=== PATIENT | male | born 1990 | race Caucasian/White ===

== ENCOUNTER 2023-01-19 05:54 | Emergency (ER) | payer OTHER ==
[2023-01-19] MEDS ORDERED: Ondansetron PF 4 MG/2 ML Vial ONE ×2 (06:23→07:28)
[2023-01-19 06:39] LABS: #Basophils 0.1 10x3/uL (0.0-0.2); #Eosinphils 0.1 10x3/uL (0.0-0.5); #Monocytes 0.5 10x3/uL (0.0-1.1); #Neutrophils 7.7 10x3/uL (1.5-8.4); %Basophils 0.5 % (0.0-2.0); %Eosinophils 0.8 % (0.0-6.0); %Lymphocytes 14.4 % (18.0-47.0); %Monocytes 5.3 % (0.0-10.0); %Neutrophils 78.7 % (40.0-75.0); Hematocrit 41.9 % (38.8-50.0); Hemoglobin 14.3 g/dL (13.5-17.5); Mean Corpuscular HGB CONC 34.1 g/dL (32.0-36.0); Mean Corpuscular Hemoglobin 29.9 pg (27.0-33.0); Mean Corpuscular Volume 87.7 fl (81.2-95.1); Mean Platelet Volume 10.3 fl (7.4-10.4); Platelet Count 246 10x3/uL (150-450); Red Blood Cell (RBC) Count 4.78 10x6/uL (4.32-5.72); White Blood Cell (WBC) Count 9.8 10x3/uL (3.5-10.5)
[2023-01-19 06:59] LABS: ALT (SGPT) 23 U/L (8-55); AST (SGOT) 16 U/L (5-34); Albumin 4.5 g/dL (3.5-5.0); Alkaline Phosphatase 62 U/L (40-110); Anion Gap 19 mmol/L (10-20); BUN (Urea Nitrogen) 19 mg/dL (8.9-20.6); Calc. Creatinine Clearance 0 mL/min (70-130); Calcium 9.6 mg/dL (7.8-10.44); Carbon Dioxide 17 mmol/L (22-29); Chloride 109 mmol/L (98-107); Estimated GFR 74; Globulin 2.6 g/dL (2.4-3.5); Glucose 131 mg/dL (70-105); Lipase 138 U/L (8-78); Potassium 3.9 mmol/L (3.5-5.1); Protein, Total 7.1 g/dL (6.0-8.3); Sodium 141 mmol/L (136-145)
[2023-01-19] MEDS ORDERED: Ketorolac Tromethamine 30 MG/ML VIAL ONE (07:28)
[2023-01-19] MEDS ORDERED: Pantoprazole 40 MG VIAL ONE (07:47)
[2023-01-19] MEDS ORDERED: Morphine 4 MG/ML VIAL ONE (08:08)
[2023-01-19] MEDS ORDERED: Iopamidol 300 61% 100 ML VIAL FS ONE (10:30)
== END 2023-01-19 09:40 | disposition home or self-care (01) ==
LOC: CSHERS 05:54
DX: K85.90 Acute pancreatitis without necrosis or infection, unspecified (principal)
CPT/HCPCS: 74177; 80053; 80178; 83690; 85025; 96361; 96374; 96375; 96376; C9113; J1885; J2270; J2405; Q9967

== ENCOUNTER 2023-06-11 08:16 | Inpatient (IN) | payer OTHER ==
[2023-06-11] MEDS ORDERED: Ondansetron PF 4 MG/2 ML Vial ONE (08:31)
[2023-06-11] MEDS ORDERED: HYDROmorphone 0.5 MG/0.5 ML SYRINGE ONE ×2 (08:37→11:01)
[2023-06-11] MEDS: Promethazine HCl 12.5 MG in Sodium Chloride 0.9% 50 ML IVPB SCH (09:15)
[2023-06-11 09:18] LABS: #Basophils 0.05 10x3/uL (0.0-0.2); #Eosinphils 0.31 10x3/uL (0.0-0.5); #Monocytes 0.56 10x3/uL (0.0-1.1); %Basophils 0.4 % (0.0-2.0); %Eosinophils 2.5 % (0.0-6.0); %Lymphocytes 21.8 % (18.0-47.0); %Monocytes 4.5 % (0.0-10.0); %Neutrophils 70.6 % (40.0-75.0); Hematocrit 44.6 % (38.8-50.0); Hemoglobin 16.2 g/dL (13.5-17.5); Mean Corpuscular HGB CONC 36.3 g/dL (32.0-36.0); Mean Corpuscular Hemoglobin 31.4 pg (27.0-33.0); Mean Corpuscular Volume 86.4 fl (81.2-95.1); Mean Platelet Volume 10.6 fl (7.4-10.4); Platelet Count 303 10x3/uL (150-450); RBC Distribution Width 11.8 % (11.5-14.5); Red Blood Cell (RBC) Count 5.16 10x6/uL (4.32-5.72); White Blood Cell (WBC) Count 12.5 10x3/uL (3.5-10.5)
[2023-06-11 09:27] LABS: Alcohol Less than 10.0 mg/dL (Less than 10); Lipase 359 U/L (8-78); Salicylate Less than 8.0 mg/dL (15.0-30.0)
[2023-06-11 09:28] LABS: ALT (SGPT) 32 U/L (8-55); AST (SGOT) 17 U/L (5-34); Albumin 4.9 g/dL (3.5-5.0); Alkaline Phosphatase 66 U/L (40-110); Anion Gap 24 mmol/L (10-20); BUN (Urea Nitrogen) 15 mg/dL (8.9-20.6); Bilirubin, Total 0.6 mg/dL (0.2-1.2); Calc. Creatinine Clearance 0 mL/min (70-130); Calcium 10.7 mg/dL (7.8-10.44); Carbon Dioxide 13 mmol/L (22-29); Chloride 109 mmol/L (98-107); Estimated GFR 62; Globulin 2.9 g/dL (2.4-3.5); Glucose 149 mg/dL (70-105); Potassium 4.2 mmol/L (3.5-5.1); Protein, Total 7.8 g/dL (6.0-8.3); Sodium 142 mmol/L (136-145)
[2023-06-11 09:31] LABS: Troponin I Less than 0.010 ng/mL (< 0.028)
[2023-06-11 09:39] LABS: Acetaminophen Less than 10 mcg/mL (10.0-30.0); Critical Call Chem-Lactate ERS.CH3@0937
[2023-06-11 11:23] LABS: Cardiac Risk 2.8 (Less than 4.5)
[2023-06-11 12:07] LABS: Lactic Acid 1.9 mmol/L (0.5-2.2)
[2023-06-11 12:45] LABS: Troponin I Less than 0.010 ng/mL (< 0.028)
[2023-06-11 13:13] VITALS: BMI 35.9
[2023-06-11] MEDS ORDERED: Morphine 2 MG/ML VIAL SLOW IVP PRN ×2 (13:19→13:20)
[2023-06-11] MEDS ORDERED: Electrolyte Replacement Protocol 1 EACH FS SCH (13:20)
[2023-06-11] MEDS ORDERED: Acetaminophen 325 MG TAB PO PRN (13:24)
[2023-06-11] MEDS: Sodium Chloride 0.9% 1,000 ML IV SCH (15:42)
[2023-06-11 15:51] LABS: Troponin I Less than 0.010 ng/mL (< 0.028)
[2023-06-11] MEDS: HYDROcodone/Acetaminophen 5/325 mg Tablet PO PRN (17:48)
[2023-06-11] MEDS: buPROPion HCl 100 MG TAB PO SCH (21:53)
[2023-06-11] MEDS: Lithium Carbonate 150 MG CAP PO SCH (21:53)
[2023-06-11] MEDS: hydrOXYzine 25 MG TAB PO SCH (21:53)
[2023-06-12] MEDS: Enoxaparin 40 MG (0.4 mL) SYRINGE SC SCH (09:05)
[2023-06-12] MEDS: Escitalopram Oxalate 20 mg Tablet PO SCH (09:07)
[2023-06-12 09:26] LABS: #Basophils 0.03 10x3/uL (0.0-0.2); #Eosinphils 0.17 10x3/uL (0.0-0.5); #Monocytes 0.38 10x3/uL (0.0-1.1); #Neutrophils 3.86 10x3/uL (1.5-8.4); %Basophils 0.5 % (0.0-2.0); %Eosinophils 2.6 % (0.0-6.0); %Lymphocytes 32.6 % (18.0-47.0); %Monocytes 5.7 % (0.0-10.0); %Neutrophils 58.3 % (40.0-75.0); Hematocrit 35.3 % (38.8-50.0); Hemoglobin 12.2 g/dL (13.5-17.5); Mean Corpuscular HGB CONC 34.6 g/dL (32.0-36.0); Mean Corpuscular Hemoglobin 31.3 pg (27.0-33.0); Mean Corpuscular Volume 90.5 fl (81.2-95.1); Mean Platelet Volume 10.6 fl (7.4-10.4); Platelet Count 201 10x3/uL (150-450); RBC Distribution Width 12.3 % (11.5-14.5); White Blood Cell (WBC) Count 6.6 10x3/uL (3.5-10.5)
[2023-06-12 09:40] VITALS: BMI 35.9
[2023-06-12 09:54] LABS: Anion Gap 11 mmol/L (10-20); Carbon Dioxide 22 mmol/L (22-29); Chloride 114 mmol/L (98-107); Potassium 4.1 mmol/L (3.5-5.1); Sodium 143 mmol/L (136-145)
[2023-06-12 09:55] LABS: BUN (Urea Nitrogen) 11 mg/dL (8.9-20.6); Calc. Creatinine Clearance 173 mL/min (70-130); Calcium 8.8 mg/dL (7.6-10.4); Estimated GFR 91; Glucose 87 mg/dL (70-105); Lipase 22 U/L (8-78)
[2023-06-12] MEDS ORDERED: Electrolyte Replacement Protocol FS PRN (19:00)
[2023-06-12] MEDS: Famotidine 20 MG TAB PO SCH (21:34)
[2023-06-12] MEDS: HYDROcodone/Acetaminophen 10/325 mg Tablet PO SCH (21:34)
[2023-06-13] MEDS: Lithium Carbonate 150 MG CAP PO SCH ×2 (09:52→21:12)
[2023-06-13] MEDS: Ibuprofen 200 MG TAB PO PRN (13:55)
[2023-06-13] MEDS: Lactated Ringer's 1,000 ML IV SCH (15:52)
[2023-06-13] MEDS: Morphine 4 MG/ML VIAL SLOW IVP PRN (17:22)
[2023-06-14 04:50] LABS: Anion Gap 12 mmol/L (10-20); BUN (Urea Nitrogen) 11 mg/dL (8.9-20.6); Calc. Creatinine Clearance 167 mL/min (70-130); Carbon Dioxide 25 mmol/L (22-29); Chloride 108 mmol/L (98-107); Estimated GFR 88; Glucose 65 mg/dL (70-105); Lipase 29 U/L (8-78); Potassium 4.1 mmol/L (3.5-5.1); Sodium 141 mmol/L (136-145)
[2023-06-14 17:18] VITALS: BP 127/73; TEMP 98.8
== END 2023-06-14 17:40 | disposition home or self-care (01) | DRG 439 ==
LOC: CSHERS 08:16 → CSHTELE 12:40
PROVIDERS: ADMIT Internal Medicine; ATTEND Family Medicine
DX: K85.90 Acute pancreatitis without necrosis or infection, unspecified (principal); E87.20 Acidosis, unspecified; F41.9 Anxiety disorder, unspecified; F32.A Depression, unspecified; G47.30 Sleep apnea, unspecified; D72.829 Elevated white blood cell count, unspecified; R00.1 Bradycardia, unspecified; Z79.899 Other long term (current) drug therapy; Z98.890 Other specified postprocedural states
CPT/HCPCS: 36415; 71045; 74177; 76705; 80048; 80053; 80061; 80178; 80307; 83605; 83690; 84484; 85025; 85379; 86140; 87040; 93005; 93010; 93306; 96374; 96375; 96376; J1170; J1650; J2270; J2405; J2550; J7050; J7120